=== PATIENT | female | born 1975 | race Caucasian/White ===

== ENCOUNTER 2020-08-22 14:43 | Inpatient (IN) | payer SELFPAY ==
[~2020-08-22] VITALS: Ht 152.4 cm; Wt 100.0 kg
[2020-08-22] MEDS ORDERED: ACETAMINOPHEN 325MG TABLET PO STA (15:52)
[2020-08-22] MEDS ORDERED: ALBUTEROL (0.083%) 2.5MG/3ML NEB HHN STA (15:52)
[2020-08-22] MEDS ORDERED: IPRATROPIUM BROMIDE (0.02%) 0.5MG/2.5ML NEB HHN STA (15:52)
[2020-08-22] MEDS ORDERED: DEXAMETHASONE 10 MG/ML VIAL IV ONE (16:00)
[2020-08-22 17:41] LABS: BASOPHILS % 0.3 % (0.0-2.0); HEMATOCRIT. 28.9 % (36.0-48.0); HEMOGLOBIN. 8.5 g/dL (12.0-16.0); LYMPHOCYTES % 25.1 % (20.0-50.0); MEAN CORPUSCULAR HEMOGLOBIN 16.6 pg (28.0-32.0); MEAN CORPUSCULAR VOLUME 56.5 fL (81.0-99.0); MEAN PLATELET VOLUME 9.5 fl (7.4-10.4); MONOCYTES % 6.7 % (2.0-8.0); NEUTROPHILS % 67.9 % (40.0-76.0); PLATELET 204 x1000/uL (130-400); RED BLOOD CELL COUNT 5.12 mill/uL (4.2-5.4); RED CELL DISTRIBUTION WIDTH 20.4 % (11.6-14.6)
[2020-08-22 17:47] LABS: CHLORIDE 103 mEq/L (98-107)
[2020-08-22 17:49] LABS: PROTHROMBIN TIME 10.5 sec (9.6-11.0)
[2020-08-22 19:04] LABS: PLATELET ESTIMATE NORMAL
[2020-08-22 19:07] LABS: HCG SCREEN NEGATIVE
[2020-08-22] MEDS ORDERED: ACETAMINOPHEN 325MG TABLET PO PRN ×2 (19:30)
[2020-08-22] MEDS ORDERED: HYDROCODONE/ACETAMINOPHEN 5/325MG TABLET PO PRN (19:30)
[2020-08-22] MEDS ORDERED: PIPERACILLIN/TAZ 3.375G PREMIX 50 ML IV ONE (19:30)
[2020-08-22] MEDS ORDERED: CLONIDINE 0.1MG TABLET PO PRN (19:30)
[2020-08-22] MEDS ORDERED: ONDANSETRON HCL 4MG/2ML INJ IV PRN (19:30)
[2020-08-22] MEDS ORDERED: LORAZEPAM 0.5MG TABLET PO PRN (19:30)
[2020-08-22] MEDS ORDERED: DOCUSATE SODIUM 100MG CAPSULE PO PRN (19:30)
[2020-08-22] MEDS ORDERED: CEFTRIAXONE 1 G PREMIX 50 ML IV SCH (20:00)
[2020-08-22] MEDS: SODIUM CHLORIDE 0.9% 1,000 ML IV SCH (20:52)
[2020-08-22 22:34] LABS: CLARITY URINE CLOUDY (CLEAR); COLOR URINE YELLOW (YELLOW); KETONES URINE 1+ (NEGATIVE); LEUKOCYTE ESTERASE URINE NEGATIVE (NEGATIVE); NITRITE URINE NEGATIVE (NEGATIVE); OCCULT BLOOD URINE NEGATIVE (NEGATIVE); PH URINE 6.5 (4.5-8.0); PROTEIN URINE 1+ (NEGATIVE)
[2020-08-22 23:06] LABS: *AMPHETAMINES SCREEN URINE NEGATIVE (NEGATIVE); *BARBITURATES SCREEN URINE NEGATIVE (NEGATIVE); *BENZODIAZEPINES SCREEN URINE NEGATIVE (NEGATIVE); *COCAINE SCREEN URINE NEGATIVE (NEGATIVE)
[2020-08-22 23:07] LABS: CANNABINOID URINE SCREEN NEGATIVE (NEGATIVE); METHADONE URINE SCREEN NEGATIVE (NEGATIVE); OPIATES URINE SCREEN NEGATIVE (NEGATIVE); PHENCYCLIDINE URINE SCREEN NEGATIVE (NEGATIVE)
[2020-08-23] MEDS: AZITHROMYCIN 500 MG in DEXT 5% WATER 250 ML IV SCH (01:42)
[2020-08-23] MEDS: SODIUM CHLORIDE 0.9% 1,000 ML IV SCH ×2 (05:44→17:26)
[2020-08-23 10:30] VITALS: BP 129/72
[2020-08-23] MEDS: DEXAMETHASONE 10 MG/ML VIAL IV SCH (11:16)
[2020-08-23 12:00] VITALS: BP 111/64
[2020-08-23 12:02] LABS: BG BASE EXCESS -0.3 mmol/L (-2.0-2.0); BG CARBOXYHEMOGLOBIN 0.7 % (0.5-1.5); BG DEOXYHEMOGLOBIN 8.7 % (0.0-5.0); BG FRACTION INSPIRED OXYGEN 40; BG HCO3 ACT 23.9 mmol/L (22.0-26.0); BG METHEMOGLOBIN 0.3 % (0.0-1.5); BG OXYGEN SATURATION 91.2 % (92.0-98.5); BG OXYHEMOGLOBIN 90.3 % (94.0-97.0); BG PCO2 36.7 mmHg (35.0-45.0); BG PH 7.431 (7.350-7.450); BG PO2 64.1 mmHg (75.0-100.0); BG SAMPLE SITE RIGHT RADIAL; BG TOTAL HEMOGLOBIN 8.1 g/dL (12.0-18.0); BG VENT MODE NASAL CANNULA
[2020-08-23 12:29] LABS: BASOPHILS % 0.1 % (0.0-2.0); HEMATOCRIT. 25.3 % (36.0-48.0); HEMOGLOBIN. 7.5 g/dL (12.0-16.0); LYMPHOCYTES % 19.5 % (20.0-50.0); MEAN CORPUSCULAR HEMOGLOBIN 16.6 pg (28.0-32.0); MEAN CORPUSCULAR VOLUME 56.2 fL (81.0-99.0); MEAN PLATELET VOLUME 8.8 fl (7.4-10.4); MONOCYTES % 6.9 % (2.0-8.0); NEUTROPHILS % 73.5 % (40.0-76.0); PLATELET 226 x1000/uL (130-400); RED BLOOD CELL COUNT 4.51 mill/uL (4.2-5.4); RED CELL DISTRIBUTION WIDTH 19.9 % (11.6-14.6)
[2020-08-23 12:45] LABS: CHLORIDE 104 mEq/L (98-107)
[2020-08-23 13:07] LABS: LDL CHOLESTEROL 70 mg/dL (5-100)
[2020-08-23 13:09] LABS: HDL CHOLESTEROL 27 mg/dL (40-59)
[2020-08-23 13:12] LABS: TOTAL IRON BINDING CAPACITY 389 ug/dL (250-450)
[2020-08-23 16:00] VITALS: BP 129/76
[2020-08-23] MEDS ORDERED: ENOXAPARIN 40MG/0.4ML SYR SUBCUT SCH ×2 (17:00)
[2020-08-23 20:00] VITALS: BP 110/71
[2020-08-23] MEDS: CEFTRIAXONE 1,000 MG in DEXTROSE 5% WATER 50 ML IV SCH (22:18)
[2020-08-24] VITALS: BP 116/65
[2020-08-24] MEDS: SODIUM CHLORIDE 0.9% 1,000 ML IV SCH ×3 (00:15→20:12)
[2020-08-24] MEDS: AZITHROMYCIN 500 MG in DEXT 5% WATER 250 ML IV SCH (00:15)
[2020-08-24 04:00] VITALS: BP 108/61
[2020-08-24 07:21] LABS: BASOPHILS % 0.1 % (0.0-2.0); HEMOGLOBIN. 7.2 g/dL (12.0-16.0); MEAN CORPUSCULAR HEMOGLOBIN 16.9 pg (28.0-32.0); MEAN CORPUSCULAR VOLUME 56.2 fL (81.0-99.0); MEAN PLATELET VOLUME 8.9 fl (7.4-10.4); MONOCYTES % 8.8 % (2.0-8.0); NEUTROPHILS % 72.1 % (40.0-76.0); PLATELET 269 x1000/uL (130-400); RED BLOOD CELL COUNT 4.26 mill/uL (4.2-5.4); RED CELL DISTRIBUTION WIDTH 20.5 % (11.6-14.6)
[2020-08-24 07:28] LABS: CHLORIDE 107 mEq/L (98-107)
[2020-08-24] MEDS: DEXAMETHASONE 10 MG/ML VIAL IV SCH (09:00)
[2020-08-24 16:00] VITALS: BP 114/63
[2020-08-24 20:00] VITALS: BP 122/56
[2020-08-24] MEDS: ENOXAPARIN 40MG/0.4ML SYR SUBCUT SCH (20:07)
[2020-08-24] MEDS: AZITHROMYCIN 250 MG TABLET PO SCH (20:07)
[2020-08-24] MEDS: CEFTRIAXONE 1,000 MG in DEXTROSE 5% WATER 50 ML IV SCH (20:32)
[2020-08-24 23:27] VITALS: BP 118/61
[2020-08-25 03:26] VITALS: BP 116/60
[2020-08-25 07:44] LABS: HEMATOCRIT. 24.5 % (36.0-48.0); HEMOGLOBIN. 7.2 g/dL (12.0-16.0); LYMPHOCYTES % 18.5 % (20.0-50.0); MEAN CORPUSCULAR HEMOGLOBIN 16.8 pg (28.0-32.0); MEAN CORPUSCULAR VOLUME 57.1 fL (81.0-99.0); MEAN PLATELET VOLUME 8.6 fl (7.4-10.4); MONOCYTES % 9.8 % (2.0-8.0); NEUTROPHILS % 71.7 % (40.0-76.0); PLATELET 299 x1000/uL (130-400); RED BLOOD CELL COUNT 4.29 mill/uL (4.2-5.4); RED CELL DISTRIBUTION WIDTH 20.7 % (11.6-14.6)
[2020-08-25 07:55] LABS: CHLORIDE 108 mEq/L (98-107)
[2020-08-25 08:00] VITALS: BP 114/68
[2020-08-25] MEDS: DEXAMETHASONE 10 MG/ML VIAL IV SCH (09:08)
[2020-08-25] MEDS: ENOXAPARIN 40MG/0.4ML SYR SUBCUT SCH (09:09)
[2020-08-25 12:00] VITALS: BP 116/64
[2020-08-25] MEDS ORDERED: GUAIFENESIN-DM 200MG-20MG/10ML UDC PO PRN (12:45)
[2020-08-25 16:00] VITALS: BP 116/70
[2020-08-25] MEDS: SODIUM CHLORIDE 0.9% 1,000 ML IV SCH ×2 (18:12→18:13)
[2020-08-25] MEDS: AZITHROMYCIN 250 MG TABLET PO SCH (19:49)
[2020-08-25] MEDS: ENOXAPARIN 30MG/0.3ML SYR SUBCUT SCH (19:50)
[2020-08-25 20:00] VITALS: BP 104/68
[2020-08-25] MEDS: CEFTRIAXONE 1,000 MG in DEXTROSE 5% WATER 50 ML IV SCH (20:33)
[2020-08-26 00:05] VITALS: BP 113/52
[2020-08-26] MEDS: SODIUM CHLORIDE 0.9% 1,000 ML IV SCH ×2 (02:25→15:08)
[2020-08-26 04:00] VITALS: BP 127/59
[2020-08-26 07:17] LABS: BASOPHILS % 0.1 % (0.0-2.0); HEMATOCRIT. 24.7 % (36.0-48.0); HEMOGLOBIN. 7.2 g/dL (12.0-16.0); LYMPHOCYTES % 23.3 % (20.0-50.0); MEAN CORPUSCULAR HEMOGLOBIN 16.7 pg (28.0-32.0); MEAN CORPUSCULAR VOLUME 57.1 fL (81.0-99.0); MEAN PLATELET VOLUME 8.8 fl (7.4-10.4); MONOCYTES % 8.5 % (2.0-8.0); NEUTROPHILS % 68.1 % (40.0-76.0); PLATELET 307 x1000/uL (130-400); RED BLOOD CELL COUNT 4.32 mill/uL (4.2-5.4)
[2020-08-26 07:27] LABS: CHLORIDE 110 mEq/L (98-107)
[2020-08-26 08:00] VITALS: BP 118/50
[2020-08-26] MEDS: DEXAMETHASONE 10 MG/ML VIAL IV SCH (08:34)
[2020-08-26] MEDS: ENOXAPARIN 30MG/0.3ML SYR SUBCUT SCH ×2 (09:00→22:02)
[2020-08-26 12:00] VITALS: BP 123/53
[2020-08-26 16:00] VITALS: BP 116/72
[2020-08-26 17:41] LABS: BG BASE EXCESS -0.7 mmol/L (-2.0-2.0); BG CARBOXYHEMOGLOBIN 0.3 % (0.5-1.5); BG DEOXYHEMOGLOBIN 6.6 % (0.0-5.0); BG FRACTION INSPIRED OXYGEN 21; BG HCO3 ACT 23.3 mmol/L (22.0-26.0); BG METHEMOGLOBIN 0.2 % (0.0-1.5); BG OXYGEN SATURATION 93.4 % (92.0-98.5); BG OXYHEMOGLOBIN 92.9 % (94.0-97.0); BG PCO2 35.6 mmHg (35.0-45.0); BG PH 7.434 (7.350-7.450); BG PO2 67.1 mmHg (75.0-100.0); BG SAMPLE SITE RIGHT BRACHIAL; BG TOTAL HEMOGLOBIN 8.8 g/dL (12.0-18.0); BG VENT MODE ROOM AIR
[2020-08-26] MEDS: IRON SUCROSE COMPLEX 100 MG/5 ML ML IV SCH (18:26)
[2020-08-26 20:00] VITALS: BP 123/66
[2020-08-26] MEDS: AZITHROMYCIN 250 MG TABLET PO SCH (22:01)
[2020-08-26] MEDS: CEFTRIAXONE 1,000 MG in DEXTROSE 5% WATER 50 ML IV SCH (22:02)
[2020-08-27] MEDS: SODIUM CHLORIDE 0.9% 1,000 ML IV SCH ×2 (00:02→09:21)
[2020-08-27 00:39] VITALS: BP 119/40
[2020-08-27 04:00] VITALS: BP 128/63
[2020-08-27 08:00] VITALS: BP 114/51
[2020-08-27] MEDS: DEXAMETHASONE 10 MG/ML VIAL IV SCH ×2 (09:00→12:25)
[2020-08-27] MEDS: IRON SUCROSE COMPLEX 100 MG/5 ML ML IV SCH (09:15)
[2020-08-27] MEDS: ENOXAPARIN 30MG/0.3ML SYR SUBCUT SCH (09:16)
[2020-08-27] MEDS ORDERED: DEXA6TAB MT (11:29)
[2020-08-27] MEDS ORDERED: APIX5TAB MT (11:29)
[2020-08-27 12:00] VITALS: BP 90/40
[2020-08-27 13:09] VITALS: BP 90/42
== END 2020-08-27 13:55 | disposition home or self-care (01) | DRG 720 ==
LOC: ER 14:49 → EDBD 14:49 → MICUSO 18:05 → EDBEDREQTM 18:16 → EDBEDREQ 18:16 → 7EST 08-23 08:05
PROVIDERS: ADMIT Internal Medicine; ATTEND Internal Medicine
DX: A41.89 Other specified sepsis (principal); U07.1 COVID-19; J96.01 Acute respiratory failure with hypoxia; E66.01 Morbid (severe) obesity due to excess calories; J15.9 Unspecified bacterial pneumonia; J12.89 Other viral pneumonia; D50.9 Iron deficiency anemia, unspecified; Z68.41 Body mass index [BMI] 40.0-44.9, adult; Z98.891 History of uterine scar from previous surgery
CPT/HCPCS: 36415; 36600; 71045; 80048; 80053; 80061; 80305; 81003; 82375; 82728; 82805; 83036; 83540; 83550; 83605; 83735; 84100; 84145; 84443; 84484; 84703; 85025; 86140; 93005; 96374; 99291; C1893; J0456; J0696; J1100; J1650; J2543; J7060; U0003